=== PATIENT | female | born 1930 | race Caucasian/White ===

== ENCOUNTER → 2020-02-20 | Outpatient (CLI) | payer MEDICARE, BC | LOC: COL.RAD 12:45 | DX: M25.552 Pain in left hip (principal) | CPT/HCPCS: J3301; Q9967 ==

== ENCOUNTER → 2020-05-24 | Outpatient (CLI) | payer MEDICARE, BC | LOC: COL.RAD 13:12 | DX: M25.552 Pain in left hip (principal) | CPT/HCPCS: J3301; Q9967 ==